=== PATIENT | male | born 1950 | race Caucasian/White ===

== ENCOUNTER 2021-09-10 07:26 | Outpatient (CLI) | payer MEDICARE, SELFPAY ==
--- NOTE | ~2021-09-10 | US_ITS ---
EXAMINATION: US aorta [facility] DATE: 09/10/2021 08:10 INDICATION: Abdominal aortic aneurysm screening, hypercholesterolemia prior smoker TECHNIQUE: Grayscale, color Doppler, and pulsed Doppler images of the aorta and common iliac arteries were obtained. COMPARISON: None. FINDINGS: Maximum vascular dimensions are as follows: Proximal aorta: 2.9 cm Mid aorta: 2.4 cm Distal aorta: 2.2 cm Right common iliac artery: 1.1 cm Left common iliac artery: 1.2 cm There is no evidence of abdominal aortic aneurysm. IMPRESSION: 1. No sonographic evidence of abdominal aortic aneurysm. Reviewed, dictated and finalized at location A.
== END 2021-09-10 07:27 | disposition home or self-care (01) ==
PROVIDERS: PCP Student in an Organized Health Care Education/Training Program; Visit Provider Student in an Organized Health Care Education/Training Program
DX: Z87.891 Personal history of nicotine dependence (principal)
CPT/HCPCS: 76706

== ENCOUNTER → 2022-12-23 15:25 | Outpatient (CLI) | payer MEDICARE, SELFPAY ==
--- NOTE | ~2022-12-23 | MR_ITS ---
EXAMINATION: MR knee LT wo con DATE: 12/23/2022 16:05 INDICATION: Enlarged left knee pain TECHNIQUE: Magnetic resonance imaging (MRI) of the left knee was performed without intravenous contra st. Sequences included coronal PD-weighted FSE, coronal PD-weighted FS FSE, sagittal T2-weighted FSE , sagittal PD-weighted FS FSE and axial PD weighted fat saturated FSE. COMPARISON: None. FINDINGS: Medial compartment: Medial extrusion of the medial meniscal body. There is a complex tear of the medial meniscus with a l ongitudinal horizontal tear plane extending to the inferior articular surface at the meniscal body an d extending to the posterior horn. There is also an oblique parrot beak configuration tear plane exte nding from the inner free edge of the posterior horn posterior medially to the left of the medial men iscus. Is approximately 8 x 7 mm region of deep chondral ulceration and fissuring at the medial aspec t of the central weightbearing medial femoral condyle. There is additional partial thickness cartilag e loss involving greater than 50% the cartilage thickness but with relatively smooth chondral surface along portions of the medial tibial plateau. There is prominent marrow edema surrounding a linear sanchez bcortical fracture line underlying the articular cortex at the medial aspect of the anterior weightbe aring medial femoral condyle with subtle collapse and concavity of the overlying articular cortex. Lateral compartment: Lateral meniscus is normal. Mild partial-thickness cartilage loss with smooth chondral surface along the posterior weightbearing lateral femoral condyle. Remaining articular cartilage is normal. Tiny ma rginal osteophytes. Patellofemoral compartment: Shallow chondral surface regularity along the central aspect of the patellar apical ridge. There is d eep chondral ulceration with underlying irregularity to the articular cortex at the caudal aspect of the medial trochlea. Ligaments and tendons: Anterior and posterior cruciate ligaments are normal. The medial collateral ligament and fibular kat ateral ligament complex are normal. Mild patellar and distal quadriceps tendinopathy. The visualized medial and lateral hamstring tendons as well as the iliotibial band are normal. Fluid: Small to moderate-sized left knee joint effusion with suprapatellar plical band. 6 mm loose osteochon dral body at the recess anterior to the anterior root of the lateral meniscus. Moderate-sized tic or cyst measuring 5.8 cm craniocaudally and 2.7 x 1.1 cm in maximal transaxial dimensions. IMPRESSION: 1. Medial meniscal body extrusion with complex tear involving the body, posterior horn and posterior root. Line 2. Stress fracture with mild collapse of the portion of the medial anterior weightbearing medial femo ral condyle likely related to altered weight distribution resulting from the meniscal tear. 3. Mild tricompartmental osteoarthritis with regions of high-grade chondromalacia in the medial and p atellofemoral compartments. 4. Mild to moderate left knee joint effusion. Reviewed, dictated and finalized at location A. [employer] IMPRESSION: 1. Medial meniscal body extrusion with complex tear involving the body, posteri or horn and posterior root. Line 2. Stress fracture with mild collapse of the portion of the medial anterior isabell ghtbearing medial femoral condyle likely related to altered weight distribution resulting from the meniscal tear. 3. Mild tricompartmental osteoarthritis with regions of high-grade chondromalac ia in the medial and patellofemoral compartments. 4. Mild to moderate left knee joint effusion.
== END ==
PROVIDERS: PCP Student in an Organized Health Care Education/Training Program; Visit Provider Nurse Practitioner Family
DX: M17.12 Unilateral primary osteoarthritis, left knee (principal); M25.462 Effusion, left knee; S83.232A Complex tear of medial meniscus, current injury, left knee, initial encounter; X58.XXXA Exposure to other specified factors, initial encounter
CPT/HCPCS: 73721

== ENCOUNTER 2023-02-09 00:37 | Day surgery (SDC) | payer MEDICARE, SELFPAY ==
[2023-02-03 08:39] VITALS: BMI 32.5
--- NOTE | 2023-02-03 08:49 | PC.NURSE ---
Report to the Outpatient Waiting Room, entrance under the green pavilion located off [facility], at time __12:00PM on date _02/09/23 . Planned Procedure Time: __2:00PM . Time changes happen often and if your time is changed the preop area will call you the afternoon before. - You and your visitor will be asked to self-screen and do not enter if you have any COVID symptoms. - Only one visitor is requested with a max of two and NO children visitors are allowed at this time. - The patient visitor may be requested to leave or wait in car when not with patient due to distancing restrictions. - A mask is optional within the hospital at this time. Patients may have clear liquids (water, carbonated beverages, clear teas, apple juice) until 3 hours prior to surgery with a maximum of 20 ounces. - No food from midnight until time of surgery Take the following medications with a SIP of water the morning of surgery: ___NONE DO NOT STOP ANY OF YOUR OTHER PRESCRIPTION MEDICATIONS PRIOR TO SURGERY ?EXCEPT THE FOLLOWING Medications to discontinue per physician ____HOLD ASPIRIN 7 DAYS PRE-OP PER DR CARLIN(PER PATIENT) Date to take last dose____02/02/23 Please no make-up, nail faroese, hairspray, perfume, deodorant, or body powder the day of surgery. No jewelry (including any body piercings) or valuables the day of surgery, leave them at home. Please take a shower or bath the night before, or the morning of, surgery with an antibacterial soap. Wear comfortable, loose fitting clothing. Children are encouraged to wear pajamas. - Jewelry must be removed prior to entering the operating room. Rings and piercings that are not removed may be cut off. - The hospital will not accept responsibility for valuables. - Please leave all valuables, including medications, at home the day of surgery. If you are going home after surgery, a licensed lease purchase driver must drive you home. - NO public transportation without another adult if you receive anesthesia. - We recommend that an adult stay with you for 24 hours following discharge. - We also recommend that you do not drive, make important decision, drink alcoholic beverages, or take any drugs that were not prescribed by your health care provider for at least 24 hours after your discharge time. Follow any additional instructions given to you from your surgeon. If you or anyone in your household have experienced Covid symptoms in the past week, please notify your surgeon or the nurse liaison at the phone number below for possible testing. Telephone instructions given to ___PATIENT and asked if any additional questions and then verbalized understanding. Patient advised to call surgeon office or pre surgery nurse liaison [phone] if any additional questions.
[2023-02-09] VITALS (7 sets, daily range): BP systolic 117–160; BP diastolic 73–107; PULSE 79–91; RESP 10–20; TEMP 36.2; O2SAT 94–100
--- NOTE | 2023-02-09 07:12 | WPDHPUPDATE1 ---
History and Physical Update Update Date/Time: 02/09/23 07:12 History and Physical has been reviewed, including an updated exam of the patient. There are NO changes in the patient's condition. Risks, benefits, and alternatives have been discussed and questions answered. Patient agrees to proceed with procedure.
[2023-02-09] MEDS: ACETAMINOPHEN 500 MG TABLET 1000 MG PO (08:19)
[2023-02-09] MEDS: CELECOXIB 200 MG CAPSULE PO (08:20)
[2023-02-09] MEDS: LACTATED RINGERS 1,000 ML 30 ML IV CONT (08:35)
--- NOTE | 2023-02-09 09:00 | P.PNAN_ITS ---
Anes - Initial Pre Proc Eval Procedure: Operation Date: 02/09/23 10:30 Proposed Procedures p Left Knee Arthroscopy - Diony Kaye MD Date/Time: 02/09/23 09:00 Surgeon: Diony Kaye MD Pre Op Diagnosis: left knee medial meniscus tear Patient Data Age: 72 Gender: M Height: 1.83 m Weight: 108.2 kg Allergies Allergy/AdvReac Type Severity Reaction Status Date / Time No Known Allergies Allergy Verified 02/09/23 08:18 Home Medications Medication Instructions Recorded Confirmed Type aspirin 325 mg tablet 325 mg PO .PRN 11/16/22 02/09/23 History chlorhexidine gluconate 4 % 1 applic topical ONCE #237 mL 01/28/23 02/09/23 Rx topical liquid (Hibiclens) Patient hx anesthesia problems: none Family hx anesthesia problems: none Results Review: All pre-operative results and documents have been reviewed as part of the pre- operative evaluation. [facility] Past Medical History Medical History Arthritis Left knee pain Medial meniscus tear Rheumatoid arthritis Vision abnormalities Weight gain Surgical History Surgical History History of arthroplasty of right knee 2019-Dr. Kaye History of right cataract surgery Family History Family History Other Diabetes mellitus Family history of arthritis Family history of malignant neoplasm Hypertension Social History Social History Smoking packs per day: 1 Smoking cigarettes per day: 20.0 Years smoked: 20 Smoking pack-years: 20.00 Smoking status: Former smoker Tobacco type: cigarettes Smoking end date: 05/14/90 Alcohol intake: current Substance use: never Living arrangements: with family Additional living arrangements comments: Spiritual care concerns: No Anes - Eval Final PreProcedure Day of Procedure 02/09/23 09:00 Patient weight: obese Heart: regular rate and rhythm Lungs: clear to auscultation Airway: Mallampati scale class II Neurological: alert and oriented Last oral intake: >/= 8 hours ASA classification: III Emergent: no Anesthetic plan: proceed Anesthesia type and monitoring: general LMA and standard monitoring Results Review: All pre-operative results and documents have been reviewed as part of the pre- operative evaluation. Informed Consent: The patient's anesthetic plan and its attendant risks and benefits were discussed with the patient/family/POA. Questions were solicited and answers provided to the satisfaction of the patient/family/POA.
[2023-02-09] MEDS: ceFAZolin 2 GM/D5W 50 ML 2 GM/50 ML BAG IVPB (10:35)
[2023-02-09] MEDS: BUPivacaine HCL 0.5% PF 30 ML VIAL INFILTRATE (10:58)
--- NOTE | 2023-02-09 11:54 | P.OP_ITS ---
Procedure Note - Detailed Date of Procedure 02/09/23 Pre-op Diagnosis left knee medial meniscus tear Post-op Diagnosis Same Procedure Performed LEFT KNEE SCOPE Surgeon Diony Kaye MD Anesthesia General Description of Procedure PATIENT WAS TAKEN TO THE OR. LEFT LEG WAS PREPPED AND DRAPED STERILE. TROCARS WERE PLACED IN THE USUAL FASHION. CAMERA WAS INTRODUCED. THERE WAS CHONDROMALACIA TO THE PATELLA FEMORAL JOINT. THERE WAS A LOT OF SYNOVITIS IN ALL COMPARTMENTS. THE MEDIAL COMPARTMENT SHOWED CHONDROMALACIA TO THE MEDIAL FEMORAL CONDYLE. A SHAVER WAS USED TO PREFORM A CHONDROPLASTY. THERE WAS A COMPLEX MEDIAL MENISCUS TEAR. THE TEAR WAS RESECTED WITH A BITER AND A SHAVER DOWN TO A SMOOTH BASE. ABOUT 30% OF THE MENISCUS WAS REMOVED. THE ACL WAS INTACT. THE LATERAL MENISCUS WAS NOT TORN. THE LATERAL COMPARTMENT HAD MINIMAL CHONDROMALACIA. CHONDROPLASTY WAS PREFORMED. A SYNOVECTOMY WAS PREF ORMED WELL. THE PATELLO FEMORAL JOINT UNDERWENT CHONDROPLASTY. THERE WAS GRADE 2 CHONDROMALACIA IN PART OF THE TROCHLEA AND PART OF THE PATELLA. SYNOVECTOMY WAS PREFORMED IN THE SUPERIOR MEDIAL COMPARTMENT. THE WOUNDS WERE APPROXIMATED WITH 4.0 NYLON. STERILE DRESSING WAS APPLIED. PATIENT WAS EXTUBATED. Estimated Blood Loss -5.0 Complications No immediate complications Condition Stable Disposition PACU
[2023-02-09] MEDS: fentaNYL CITRATE INJ (*CRX) 100 MCG/2 ML VIAL 25 MCG IV PUSH ×4 (12:10→12:16)
== END 2023-02-09 13:20 | disposition home or self-care (01) ==
PROVIDERS: PCP Student in an Organized Health Care Education/Training Program; Visit Provider Orthopaedic Surgery
PROC: (CPT 29870; principal; 2023-02-09 10:30)
DX: M23.332 Other meniscus derangements, other medial meniscus, left knee (principal); M94.262 Chondromalacia, left knee; M65.862 Other synovitis and tenosynovitis, left lower leg; Z79.82 Long term (current) use of aspirin; Z87.891 Personal history of nicotine dependence; E66.9 Obesity, unspecified; Z68.32 Body mass index [BMI] 32.0-32.9, adult
CPT/HCPCS: 29881; A9270; J0690; J1100; J1170; J2405; J2704; J3010; J7120

== ENCOUNTER 2024-07-31 08:00 | Outpatient (CLI) | payer MEDICARE, SELFPAY | END 2024-07-31 08:01 | disposition home or self-care (01) | LOC: ANHAUDIO 08:07 | PROVIDERS: Visit Provider Family Medicine | DX: H90.3 Sensorineural hearing loss, bilateral (principal) | CPT/HCPCS: 92557; 92567 ==

== ENCOUNTER 2024-08-22 06:06 | Day surgery (SDC) | payer MEDICARE, SELFPAY ==
[2024-07-19 09:29] VITALS: BMI 31.5
[2024-08-07 14:01] VITALS: BMI 31.4
--- NOTE | 2024-08-21 15:31 | P.PNAN_ITS ---
Anes - Initial Pre Proc Eval Procedure: Operation Date: 08/22/24 08:00 Proposed Procedures p Diagnostic Colonoscopy - Rene Hoang MD Date/Time: 08/21/24 15:31 Surgeon: Rene Hoang MD Pre Op Diagnosis: Personal HX of Colonic Polyps Patient Data Age: 74 Gender: M Height: 1.83 m Weight: 105 kg Allergies Allergy/AdvReac Type Severity Reaction Status Date / Time No Known Allergies Allergy Verified 08/22/24 06:24 Home Medications Medication Instructions Recorded Confirmed Type aspirin 325 mg tablet 325 mg PO .PRN 11/16/22 08/22/24 History ezetimibe 10 mg tablet (Zetia) 10 mg PO DAILY 07/11/24 08/22/24 History Patient hx anesthesia problems: none Family hx anesthesia problems: none Results Review: All pre-operative results and documents have been reviewed as part of the pre- operative evaluation. [facility] Past Medical History Medical History (Updated 08/22/24 @ 07:03 by Will Newman DO) Arthritis Hyperlipidemia Left knee pain Medial meniscus tear Vision abnormalities Weight gain Surgical History Surgical History History of arthroplasty of right knee 2019-Dr. Kaye History of right cataract surgery Family History Family History Other Diabetes mellitus Family history of arthritis Family history of malignant neoplasm Hypertension Social History Social History Smoking packs per day: 1 Smoking cigarettes per day: 20.0 Years smoked: 20 Smoking pack-years: 20.00 Smoking status: Former smoker Tobacco type: cigarettes Smoking end date: 05/14/90 Alcohol intake: never Substance use: never Substance use type: does not use Living arrangements: with family Additional living arrangements comments: Spiritual care concerns: No Anes - Eval Final PreProcedure Day of Procedure 08/21/24 15:31 Patient weight: obese Heart: regular rate and rhythm Lungs: clear to auscultation Airway: Mallampati scale class II Neurological: alert and oriented Last oral intake: >/= 8 hours ASA classification: II Emergent: no Anesthetic plan: proceed Anesthesia type and monitoring: general GIVS and standard monitoring Results Review: All pre-operative results and documents have been reviewed as part of the pre- operative evaluation. Informed Consent: The patient's anesthetic plan and its attendant risks and benefits were discussed with the patient/family/POA. Questions were solicited and answers provided to the satisfaction of the patient/family/POA.
[2024-08-22 06:25] VITALS: BP 174/85; PULSE 77; RESP 18; TEMP 37.1; O2SAT 98
[2024-08-22] MEDS: LACTATED RINGERS 1,000 ML 150 ML IV CONT (06:27)
--- NOTE | 2024-08-22 07:13 | PM.HPGS ---
History of Present Illness History of Present Illness Consent: Risks, benefits, and alternatives have been discussed and questions answered. Patient agrees to proceed with procedure. Chief complaint: Neoplasia screening Narrative: Jese Lucio is a 74 year old male presents for screening colonoscopy. Patient's current weight appetite and bowel movements appear normal. Patient denies is abdominal pain. he has had no bleeding. Family history is noncontributory. Patient did have prep is the 5 years ago and a benign hyperplastic polyp was removed. This was not felt to have cancer risk. Review of Systems Review of Systems: Review of systems noncontributory. [facility] Past Medical History Medical History (Updated 08/22/24 @ 07:03 by Will Newman DO) Arthritis Hyperlipidemia Left knee pain Medial meniscus tear Vision abnormalities Weight gain Surgical History Surgical History History of arthroplasty of right knee 2019-Dr. Kaye History of right cataract surgery Family History Family History Other Diabetes mellitus Family history of arthritis Family history of malignant neoplasm Hypertension Social History Social History Smoking packs per day: 1 Smoking cigarettes per day: 20.0 Years smoked: 20 Smoking pack-years: 20.00 Smoking status: Former smoker Tobacco type: cigarettes Smoking end date: 05/14/90 Alcohol intake: never Substance use: never Substance use type: does not use Living arrangements: with family Additional living arrangements comments: Spiritual care concerns: No Meds Home Medications and Allergies Home Medications Medication Instructions Recorded Confirmed Type aspirin 325 mg tablet 325 mg PO .PRN 11/16/22 08/22/24 History ezetimibe 10 mg tablet (Zetia) 10 mg PO DAILY 07/11/24 08/22/24 History Allergies Allergy/AdvReac Type Severity Reaction Status Date / Time No Known Allergies Allergy Verified 08/22/24 06:24 Vital Signs Vital Signs - 24 hr 08/22/24 06:25 Temperature 98.7 F Pulse Rate 77 Respiratory Rate 18 Blood Pressure 174/85 H Pulse Oximetry 98 Oxygen Delivery Room Air Exam Narrative: Physical exam reveals patient to be alert. Vital signs stable. HEENT exam is unremarkable. Patient is anti. Lungs are clear to auscultation and percussion is without murmur or extra sounds. Abdomen bowel sounds are present soft nontender with no organomegaly. Digital external rectal exam normal. Assessment and Plan Assessment and plan (1) Colon cancer screening: Code(s): Z12.11 - Encounter for screening for malignant neoplasm of colon Status: Acute Assessment and Plan: Presents today for screening colonoscopy. Further recommendations may be given after endoscopy.
[2024-08-22 08:08] VITALS: BP 154/89; PULSE 80; RESP 16; O2SAT 97
[2024-08-22 08:18] VITALS: BP 144/87; PULSE 69; RESP 16; O2SAT 98
[2024-08-22 08:28] VITALS: BP 141/87; PULSE 72; RESP 16; O2SAT 98
--- NOTE | 2024-08-22 09:21 | WPDANESPN ---
Anes - Prog Note Post-Op Date/Time: 08/22/24 09:21 Cardiovascular status: normal Respiratory status: normal Airway patency: baseline Mental status: baseline Post-Op hydration status: normal Vital Signs: Last Vital Signs Temp 37.1 C 08/22/24 06:25 Pulse 72 08/22/24 08:28 Resp 16 08/22/24 08:28 BP 141/87 H 08/22/24 08:28 Pulse Ox 98 08/22/24 08:28 O2 Del Method Room Air 08/22/24 08:28 Pain Score (VAS): 0 I/O: Intake & Output 08/21/24 08/22/24 08/22/24 23:59 07:59 15:59 Intake Total 500 Balance 500 Post-procedural complaints: none Patient Feedback: Patient satisfied with anesthetic care. Other Findings: Patient vital signs back to baseline. Patient denies nausea and vomiting. Patient's pain under control. Patient OK for discharge.
== END 2024-08-22 08:41 | disposition home or self-care (01) ==
PROVIDERS: Visit Provider Internal Medicine Gastroenterology
PROC: 0DJD8ZZ Inspection of Lower Intestinal Tract, Via Natural or Artificial Opening Endoscopic (ICD-10-PCS; CPT 45378; principal; 2024-08-22 08:00)
DX: Z12.11 Encounter for screening for malignant neoplasm of colon (principal); K64.8 Other hemorrhoids
CPT/HCPCS: 45378

== ENCOUNTER 2024-08-23 13:00 | Outpatient (RCR) | payer MEDICARE, SELFPAY | END 2024-08-23 23:59 | disposition home or self-care (01) | LOC: ANHAUDIO 13:00 | PROVIDERS: Visit Provider Family Medicine | DX: Z46.1 Encounter for fitting and adjustment of hearing aid (principal) | CPT/HCPCS: 99199; V5260 ==

== ENCOUNTER 2024-09-06 13:31 | Emergency (ER) | payer MEDICARE, SELFPAY ==
[2024-09-06 13:41] VITALS: BP 137/99; PULSE 71; RESP 16; TEMP 37.4; O2SAT 99
--- NOTE | 2024-09-06 14:01 | ED_ITS ---
HPI - Abdominal Pain General Chief Complaint: Abdominal Pain Stated Complaint: knot right lower abdomen, not feeling well Time Seen by Provider: 09/06/24 13:50 Source: patient, family () and RN notes reviewed Mode of arrival: ambulatory Limitations: no limitations History of Present Illness HPI narrative: Patient presents today complaining of a one-week history of right anterolateral abdominal pain with a large bulge to the same area. Denies any additional symptoms to include fever, nausea vomiting, diarrhea, urinary symptoms. Currently rates his pain 4/10 and has tried some aspirin which mildly helped his pain. Pain increases while he standing. Patient had a colonoscopy approximately 2 weeks ago and review of report showed a normal scope aside from some internal hemorrhoids. Related Data Home Medications Medication Instructions Recorded Confirmed aspirin 325 mg tablet 325 mg PO .PRN 11/16/22 09/06/24 ezetimibe 10 mg tablet (Zetia) 10 mg PO DAILY 07/11/24 09/06/24 Allergies Allergy/AdvReac Type Severity Reaction Status Date / Time No Known Allergies Allergy Verified 08/22/24 06:24 Review of Systems Review of Systems: CONSTITUTIONAL: Denies body aches, fever, chills, or sweats. EYES: Denies visual changes, redness, or discharge. ENT: Denies rhinorrhea, congestion, sore throat, or otalgia. CARDIOVASCULAR: Denies chest pain, palpitations, or edema. RESPIRATORY: Denies cough or dyspnea. GASTROINTESTINAL: Denies nausea, vomiting, or diarrhea.+ abdominal pain GENITOURINARY: Denies dysuria or hematuria. SKIN: Denies rash, itching, or wounds. MUSCULOSKELETAL: Denies back pain, joint pain, or myalgia. NEUROLOGIC: Denies headache, numbness, tingling, or weakness. PSYCH: Denies depression or anxiety. [facility] Past Medical History Medical History Arthritis Hyperlipidemia Left knee pain Medial meniscus tear Vision abnormalities Weight gain Surgical History Surgical History History of arthroplasty of right knee 2019-Dr. Kaye History of right cataract surgery Family History Family History Other Diabetes mellitus Family history of arthritis Family history of malignant neoplasm Hypertension Social History Social History Smoking packs per day: 1 Smoking cigarettes per day: 20.0 Years smoked: 20 Smoking pack-years: 20.00 Smoking status: Former smoker Tobacco type: cigarettes Smoking end date: 05/14/90 Alcohol intake: never Substance use: never Substance use type: does not use Living arrangements: with family Additional living arrangements comments: Spiritual care concerns: No Comments At time of signature, I have reviewed and agree with nursing past medical, surgical, social and family history unless otherwise noted. Please see nursing chart for further information. There is no relevant family history pertinent to the presenting complaint Exam Narrative: GENERAL: Well-appearing, well-nourished, and in no acute distress. HEAD: Normocephalic, atraumatic. EYES: EOMI. No redness or drainage. Conjunctivae normal. ENT: Mucous membranes pink and moist. NECK: Normal AROM. CHEST: No respiratory distress. Clear to auscultation. HEART: Regular rate and rhythm. No murmur appreciated. Normal peripheral pulses. ABDOMEN: Soft, nondistended, normal active bowel sounds. +tenderness to the right upper anterolateral abdomen with slight bulging noted while standing. EXTREMITIES: Normal range of motion. No edema. SKIN: Warm, dry, no rash. Capillary refill normal. Normal skin turgor. NEURO: No focal deficits. Alert and oriented x3. Gait steady. PSYCH: Normal affect. No signs of depression or anxiety. Course Course Level of Care: Express Care Visit Vital Signs Vital signs: Vital Signs Temperature 99.4 F 09/06/24 13:41 Pulse Rate 71 09/06/24 13:41 Respiratory Rate 16 09/06/24 13:41 Blood Pressure 137/99 H 09/06/24 13:41 Pulse Oximetry 99 09/06/24 13:41 Oxygen Delivery Room Air 09/06/24 13:41 Temperature 99.4 F 09/06/24 13:41 Pulse Rate 71 09/06/24 13:41 Respiratory Rate 16 09/06/24 13:41 Blood Pressure 137/99 H 09/06/24 13:41 Pulse Oximetry 99 09/06/24 13:41 Oxygen Delivery Room Air 09/06/24 13:41 Reviewed Transfer Transfered to: [facility] Transportation: Other (Private vehicle) Transfer rationale: Abdominal pain Accepting physician: Jayda MDM - Abdominal Pain MDM Narrative Medical decision making narrative: Patient will be transferred to the ER for further evaluation of his abdominal pain. Differential Diagnosis Differential diagnosis: Likely abdominal pain and other (hernia, hepatitis) Critical Care Time Critical Care Time Critical Care Time: No Discharge Plan Discharge Clinical Impression: Right sided abdominal pain Patient Disposition: Acute Care Hospital Condition: Stable Prescriptions: No Action aspirin 325 mg tablet 325 mg PO .PRN ezetimibe [Zetia] 10 mg tablet 10 mg PO DAILY Follow-up/Referrals: Colt Martinez RN [Primary Care Provider] - Time of Disposition: 14:02
== END 2024-09-06 14:03 | disposition short-term general hospital (02) ==
PROVIDERS: Emergency Provider Nurse Practitioner
DX: R10.11 Right upper quadrant pain (principal); M19.90 Unspecified osteoarthritis, unspecified site; E78.5 Hyperlipidemia, unspecified; Z87.891 Personal history of nicotine dependence
CPT/HCPCS: 99212; G0463

== ENCOUNTER 2024-09-06 14:16 | Emergency (ER) | payer MEDICARE, SELFPAY ==
--- NOTE | ~2024-09-06 | CT_ITS ---
EXAMINATION: CT abdomen pelvis w con DATE: 09/06/2024 15:40 INDICATION: Right lower quadrant abdominal pain. TECHNIQUE: Computed tomography (CT) of the abdomen and pelvis was performed with 100 mL Omnipaque-350 intravenous contrast. Automated exposure control and iterative reconstruction technique were employe d. The dose-length product was 1261.14 mGy-cm. COMPARISON: None FINDINGS: Mild dependent atelectasis in the bilateral lower lobes. Heart size is normal. Atherosclerotic lew ry artery calcific lesion. No pericardial or pleural effusion. Diffuse hepatic steatosis with focal s paring along the gallbladder fossa. Gallbladder, and pancreas, bilateral adrenal glands and left kidn ey are normal. 2.4 similar eccentric cyst at the posterior right kidney. Small splenic calcific locat ion consistent with old granulomatous disease. 8 mm hyperenhancing splenic lesion, likely a hemangiom a. Bowels are normal. The appendix is not visualized. No pericecal inflammatory change to suggest acu te appendicitis. Bladder is normal. Prostatomegaly measuring 4.7 x 4.0 cm. Small fat-containing umbil ical and left inguinal hernias and moderate-sized fat-containing right inguinal hernia. No free intra peritoneal gas or fluid. No pathologically enlarged abdominal or pelvic lymphadenopathy. Mild lumbar dextrocurvature with severe spondylosis. Mild lower thoracic spondylosis, bladder with bridging osteo phytes at multiple levels consistent with diffuse idiopathic skeletal hyperostosis (DISH). IMPRESSION: 1. No acute intra-abdominal/pelvic process. 2. Small fat-containing umbilical and left inguinal hernias and moderate-sized fat-containing right i nguinal hernia. 3. Prostatomegaly. Reviewed, dictated and finalized at location A. IMPRESSION: 1. No acute intra-abdominal/pelvic process. 2. Small fat-containing umbilical and left inguinal hernias and moderate-sized fat-containing right inguinal hernia. 3. Prostatomegaly.
--- NOTE | 2024-09-06 14:28 | ED.ABDPAIN ---
HPI - Abdominal Pain General Chief Complaint: Abdominal Pain Stated Complaint: R sided abd pain Time Seen by Provider: 09/06/24 14:27 Source: patient Mode of arrival: ambulatory Limitations: no limitations History of Present Illness HPI narrative: This is a 74-year-old male who presents to the ED for chief complaint of right-sided abdominal pain x1 week. Patient reports the pain is relatively constant but does come and go in severity. He thinks that he may have a hernia on the right side and feels some swelling in this area at times. Denies associated nausea, vomiting, diarrhea, constipation. Denies fevers, chills, GI bleeding symptoms. Denies any urinary symptoms. Denies any change of pain with position. Related Data Home Medications Medication Instructions Recorded Confirmed aspirin 325 mg tablet 325 mg PO .PRN 11/16/22 09/06/24 ezetimibe 10 mg tablet (Zetia) 10 mg PO DAILY 07/11/24 09/06/24 Allergies Allergy/AdvReac Type Severity Reaction Status Date / Time No Known Allergies Allergy Verified 09/06/24 14:17 Review of Systems Review of Systems: All systems as dictated in [facility] Past Medical History Medical History Arthritis Hyperlipidemia Left knee pain Medial meniscus tear Vision abnormalities Weight gain Surgical History Surgical History History of arthroplasty of right knee 2019-Dr. Kaye History of right cataract surgery Family History Family History Other Diabetes mellitus Family history of arthritis Family history of malignant neoplasm Hypertension Social History Social History Smoking packs per day: 1 Smoking cigarettes per day: 20.0 Years smoked: 20 Smoking pack-years: 20.00 Smoking status: Former smoker Tobacco type: cigarettes Smoking end date: 05/14/90 Alcohol intake: never Substance use: never Substance use type: does not use Living arrangements: with family Additional living arrangements comments: Spiritual care concerns: No Exam Narrative: GENERAL: Well-appearing, well-nourished, and in no acute distress. HEAD: Normocephalic, atraumatic. EYES: PERRLA and EOMI. ENT: Nares clear, no rhinorrhea or epistaxis. Mucous membranes moist. Oropharynx without tonsillar hypertrophy exudate or other lesions. NECK: Supple. No adenopathy or masses. CHEST: No respiratory distress. Clear to auscultation. No wheezes rales or rhonchi HEART: Regular rate and rhythm. No murmur heard. Normal peripheral pulses. ABDOMEN: Mild right lower quadrant tenderness. Negative flank tenderness bilaterally. Soft, otherwise nontender, nondistended, normal active bowel sounds. MSK: Normal range of motion. No edema. SKIN: Warm, dry, no rash. NEURO: Alert and oriented x4. No focal deficits. PSYCH: Normal mood and affect. Course Reevaluation(s) Reevaluation #1: Re-evaluated the patient after CT scan results. The does appear that there is a small inguinal hernia that is easily reducible on exam. Patient is still relatively asymptomatic at this time and feels ready to go home Date: 09/06/24 Time: 16:03 Vital Signs Vital signs: Vital Signs Pulse Rate 71 09/06/24 14:30 Respiratory Rate 16 09/06/24 14:30 Blood Pressure 185/91 H 09/06/24 14:30 Pulse Oximetry 99 09/06/24 14:30 Pulse Rate 78 09/06/24 16:00 Respiratory Rate 18 09/06/24 16:00 Blood Pressure 156/81 H 09/06/24 16:00 Pulse Oximetry 98 09/06/24 16:00 MDM - Abdominal Pain MDM Narrative Medical decision making narrative: This is a 74 yo male who presents to the ED for chief complaint of right-sided abdominal pain beginning 1 week ago. Vitals are normal. Exam shows mild right-sided abdominal tenderness. Lab work is unremarkable overall. No elevation in white count. CT abdomen and pelvis with IV contrast: IMPRESSION: 1. No acute intra-abdominal/pelvic process. 2. Small fat-containing umbilical and left inguinal hernias and moderate-sized fat-containing right inguinal hernia. 3. Prostatomegaly. Presentation likely consistent with a inguinal hernia pain. On re-evaluation it is easily reducible. He feels ready to go home. Surgery referral will be given. Patient will be discharged in stable condition. Supportive measures discussed and return precautions given. Patient is understanding and agreeable with plan for discharge with PCP follow-up. Lab Data 09/06/24 14:42 09/06/24 14:42 Labs: Lab Results 09/06/24 09/06/24 Range/Units 14:42 15:12 WBC 7.6 (4.5-10.0) K/mm3 RBC 5.44 (4.6-6.20) M/mm3 Hgb 17.3 (14.0-18.0) g/dL Hct 49.4 (42.0-52.0) % MCV 90.8 (80-100) fl MCH 31.8 (26-34) pg MCHC 35.0 (32-36) g/dl RDW 12.0 (11.5-14.5) % Plt Count 246 (150-375) k/mm3 MPV 10.4 (7.4-10.4) fl Immature Gran % (Auto) 0.1 (0-0.5) % Neut % (Auto) 51.5 (45.5-73.1) % Lymph % (Auto) 37.3 (18.3-44.2) % [place] % (Auto) 9.3 H (2.6-8.5) % Eos % (Auto) 1.4 (0-4.4) % Baso % (Auto) 0.4 (0.2-1.2) % Lymph # (Auto) 2.84 (0.9-3.2) K/mm3 [place] # (Auto) 0.7 H (0.1-0.6) K/mm3 Eos # (Auto) 0.1 (0-0.3) K/mm3 Baso # (Auto) 0.0 (0.0-0.1) K/mm3 Abs Immat Gran (auto) 0.01 (0.00-0.031) K/mm3 Absolute Neuts (auto) 3.9 (1.3-6.7) K/mm3 Absolute Nucleated RBC 0.000 (0.0-0.012) K/mm3 Nucleated RBC % 0.0 (0.0-0.2) % Sodium 141 (137-145) mmol/L Potassium 4.3 (3.4-5.0) mmol/L Chloride 100 (98-107) mmol/L Carbon Dioxide 31 H (22-30) mmol/L Anion Gap 10 (4-12) mmol/L BUN 19 (9-20) mg/dL Creatinine 0.90 (0.7-1.3) mg/dL Estim Creat Clear Calc 79 ml/min Estimated GFR > 60 (59 - ) Glucose 93 (65-110) mg/dL Calcium 9.7 (8.4-10.2) mg/dL Total Bilirubin 0.7 (0.2-1.3) mg/dL AST 48 (17-59) U/L ALT 64 H (6-50) U/L Alkaline Phosphatase 47 (38-126) U/L Total Protein 9.0 H (6.3-8.2) g/dL Albumin 5.0 (3.5-5.1) g/dL Lipase 287 (23-300) U/L Urine Color Yellow (Yellow) Urine Appearance Clear (Clear) Urine pH 6.0 (5.0-9.0) Ur Specific [place] 1.015 (1.001-1.035) Urine Protein Negative (Negative) mg/dL Urine Glucose (UA) Negative (Negative) mg/dL Urine Ketones Negative (Negative) mg/dL Ur Blood (Man) Negative (Negative) Urine Nitrate Negative (Negative) Urine Bilirubin Negative (Negative) Urine Urobilinogen 1.0 (<2.0) mg/dL Leukocyte Esterase Rfl Negative (Negative) ERIC/UL Imaging Data Radiologist's impression: ITS Impressions Abdomen/Pelvis CT 09/06/24 15:47 IMPRESSION: 1. No acute intra-abdominal/pelvic process. 2. Small fat-containing umbilical and left inguinal hernias and moderate-sized fat-containing right inguinal hernia. 3. Prostatomegaly. Discharge Plan Discharge Clinical Impression: Hernia, umbilical, Hernia, inguinal, right Patient Disposition: Home, Self-Care Condition: Stable Instructions: Antibiotic Form Additional Instructions: Your exam and imaging today are reassuring overall. Please follow-up with PCP. You can use an [id number] truss belt to help with hernia. If this continues to be an issue, will need to follow-up with general surgery clinic. If you have any new or worsening symptoms please return to the ER for further evaluation. Prescriptions: No Action aspirin 325 mg tablet 325 mg PO .PRN ezetimibe [Zetia] 10 mg tablet 10 mg PO DAILY Follow-up/Referrals: Colt Martinez RN [Primary Care Provider] - Harvey Ramos MD [Physician] - Time of Disposition: 16:04
[2024-09-06 14:30] VITALS: BP 185/91; PULSE 71; RESP 16; O2SAT 99
[2024-09-06 14:52] LABS: Basophils Percent Auto 0.4 % (0.2-1.2); Eosinophils Absolute Auto 0.1 K/mm3 (0-0.3); Eosinophils Percent Auto 1.4 % (0-4.4); Hematocrit 49.4 % (42.0-52.0); Hemoglobin 17.3 g/dL (14.0-18.0); Immature Granulocyte Absolute 0.01 K/mm3 (0.00-0.031); Immature Granulocyte Percent A 0.1 % (0-0.5); Lymphocytes Absolute Auto 2.84 K/mm3 (0.9-3.2); Lymphocytes Percent Auto 37.3 % (18.3-44.2); Mean Corpuscular Hemoglobin 31.8 pg (26-34); Mean Corpuscular Volume 90.8 fl (80-100); Mean Platelet Volume 10.4 fl (7.4-10.4); Monocytes Absolute Auto 0.7 K/mm3 (0.1-0.6); Monocytes Percent Auto 9.3 % (2.6-8.5); Neutrophils Absolute Auto 3.9 K/mm3 (1.3-6.7); Neutrophils Percent Auto 51.5 % (45.5-73.1); Platelet Count Result 246 k/mm3 (150-375); Red Blood Count 5.44 M/mm3 (4.6-6.20); White Blood Count 7.6 K/mm3 (4.5-10.0)
[2024-09-06 14:59] LABS: Alanine Aminotransferase 64 U/L (6-50); Alkaline Phosphatase 47 U/L (38-126); Anion Gap 10 mmol/L (4-12); Aspartate Amino Transferase 48 U/L (17-59); Bilirubin,Total 0.7 mg/dL (0.2-1.3); Blood Urea Nitrogen 19 mg/dL (9-20); Calcium 9.7 mg/dL (8.4-10.2); Carbon Dioxide 31 mmol/L (22-30); Chloride 100 mmol/L (98-107); Estimated CRCL calculation 79 ml/min; Estimated Glomerular Filt Rate > 60; Glucose 93 mg/dL (65-110); Lipase 287 U/L (23-300); Potassium 4.3 mmol/L (3.4-5.0); Sodium 141 mmol/L (137-145)
[2024-09-06 15:18] LABS: Add Urine Microscopic? NO; Appearance Urine Clear (Clear); Bilirubin Urine Negative (Negative); Blood Urine Negative (Negative); Color Urine Yellow (Yellow); Glucose Urine UA Negative (Negative); Ketones Urine Negative (Negative); Leukocyte Esterase Ur Negative LEU/UL (Negative); Nitrate Urine Negative (Negative); Protein Urine Negative (Negative); Specific Grav Ur 1.015 (1.001-1.035)
[2024-09-06 15:30] VITALS: BP 137/86; PULSE 75; RESP 18; O2SAT 98
[2024-09-06 16:00] VITALS: BP 156/81; PULSE 78; RESP 18; O2SAT 98
== END 2024-09-06 16:13 | disposition home or self-care (01) ==
PROVIDERS: Emergency Medicine; Emergency Provider Physician Assistant
DX: K40.20 Bilateral inguinal hernia, without obstruction or gangrene, not specified as recurrent (principal); E78.5 Hyperlipidemia, unspecified; M19.90 Unspecified osteoarthritis, unspecified site; Z96.651 Presence of right artificial knee joint; Z98.41 Cataract extraction status, right eye; Z87.891 Personal history of nicotine dependence; K42.9 Umbilical hernia without obstruction or gangrene; N40.0 Benign prostatic hyperplasia without lower urinary tract symptoms
CPT/HCPCS: 36415; 74177; 80053; 81003; 83690; 85025; 99284; Q9967

== ENCOUNTER 2024-12-12 01:45 | Day surgery (SDC) | payer MEDICARE, SELFPAY ==
[2024-12-06 15:15] VITALS: BMI 31.1
--- NOTE | 2024-12-06 15:26 | PC.NURSE ---
Report to the Outpatient Waiting Room, entrance under the green pavilion located off [facility], at time _08:00am on date _12/12/24 . Planned Procedure Time: _10:00am .? Time changes happen often and if your time is changed the preop area will call you the afternoon before. - You and your visitor will be asked to self-screen and do not enter if you have any COVID symptoms. Please call surgeon if you need to reschedule. - A mask is optional within the hospital at this time. Patients may have clear liquids (water, carbonated beverages, clear teas, apple juice) until 3 hours prior to surgery with a maximum of 20 ounces. - No food from midnight until time of surgery and no smoking. This includes no chewing gum, candy or mints.(07:00am) Take only the following medications with a SIP of water on the morning of surgery: None DO NOT STOP ANY OF YOUR OTHER PRESCRIPTION MEDICATIONS PRIOR TO SURGERY EXCEPT THE FOLLOWING Medications to discontinue per physician None Date to take last dose____None Please no make-up, nail kazakh, hairspray, perfume, deodorant, or body powder the day of surgery.? No jewelry (including any body piercings) or valuables the day of surgery, leave them at home.? Please take a shower or bath the night before, or the morning of, surgery with an antibacterial soap.? Wear comfortable, loose fitting clothing.? - Jewelry must be removed prior to entering the operating room.? Rings and piercings that are not removed may be cut off. - The hospital will not accept responsibility for valuables.? - Please leave all valuables, including medications, at home the day of surgery. If you are going home after surgery, a licensed bus driver school must drive you home.? - NO public transportation without another adult if you receive anesthesia. - We recommend that an adult stay with you for 24 hours following discharge. - We also recommend that you do not drive, make important decision, drink alcoholic beverages, or take any drugs that were not prescribed by your health care provider for at least 24 hours after your discharge time. Follow any additional instructions given to you from your surgeon. Telephone instructions given to __Patient and asked if any additional questions and then verbalized understanding. Patient advised to call surgeon office or pre surgery nurse liaison [phone] if any additional questions.
--- NOTE | 2024-12-11 16:03 | PM.SD2 ---
Same Day Admit/Disch: HPI History of Present Illness Chief complaint: Bilateral Inguinal Hernias Narrative: Jese Lucio is a 74 year old male Who went to the emergency room in late August because of some right lower quadrant pain and associated swelling there. Evaluation there showed that he had a right inguinal hernia on exam. He had a CT scan which showed a small umbilical hernia and bilateral fat containing inguinal hernias, right inguinal hernia being larger than the left. Patient was then seen in my office about a week later. His exam did show a reducible but sizable right inguinal hernia and a smaller but definitely present left inguinal hernia. He also was noted to have a very tiny umbilical hernia which was asymptomatic and an estimated 3 mm defect. After thorough discussion, he is taken to surgery now for robotic laparoscopic repair of the bilateral inguinal hernias with mesh. [facility] Past Medical History Medical History Hyperlipidemia Medial meniscus tear Arthritis Vision abnormalities Weight gain Left knee pain Surgical History Surgical History History of right cataract surgery History of arthroplasty of right knee 2019-Dr. Kaye Family History Family History Other Diabetes mellitus Family history of arthritis Family history of malignant neoplasm Hypertension Social History Social History Smoking packs per day: 1 Smoking cigarettes per day: 20.0 Years smoked: 20 Smoking pack-years: 20.00 Smoking status: Former smoker Tobacco type: cigarettes Smoking end date: 05/14/90 Alcohol intake: never Substance use: never Substance use type: does not use Living arrangements: with family Additional living arrangements comments: Spiritual care concerns: No Same Day Admit/Disch: Med Pre-admit Medications Home Medications ?Medication ?Instructions ?Recorded ?Confirmed ?Type ezetimibe 10 mg tablet (Zetia) 10 mg PO DAILY 07/11/24 12/12/24 History ibuprofen 600 mg tablet 600 mg PO Q6H PRN pain #14 tabs 12/12/24 Rx oxycodone-acetaminophen 5 mg-325 0.5 - 1 tablet PO Q4H PRN pain #10 12/12/24 Rx mg tablet (Percocet) tabs Review of Systems Review of Systems All systems reviewed & are unremarkable except as noted in HPI and below ( HPI) Exam Const: General: comfortable, no acute distress, alert and awake HENMT: Head: normocephalic and atraumatic Mouth: Yes Normal oral and palatal mucosa present Eyes: Conjunctivae: conjunctivae normal Pupils: Equal, round and reactive pupils present EOM: EOMs intact bilaterally Neck: Neck: normal visual inspection, no lymphadenopathy and nontender Resp: Effort & Inspection: normal respiratory effort Auscultation: clear to auscultation bilaterally Cardio: Rate: regular rate Rhythm: regular rhythm Heart sounds: no gallops, no murmurs and no rubs GI: Inspection: non-distended GI Palp: Yes Soft to palpation, No Tenderness to palpation present (GI), No Hepatomegaly present, No Splenomegaly present and Yes Hernia present umbilical < 3 cm ( very small umbilical hernia, nontender, defect estimated 3 mm) : Male General Exam: Yes hernia ( bilateral inguinal hernias, right greater than left, both reducible.) Penis: Yes normal penis Scrotum: scrotum normal Testes: Testes normal Skin: Lesions: no lesions Rashes: no rashes Neuro: General: no focal motor deficits and CN's II-XI intact bilaterally Cranial nerves: Yes Equal, round and reactive pupils present, Yes Bilaterally intact EOM present, Yes facial symmetry and Yes Midline tongue present Speech: normal speech Motor exam (neuro): 5/5 motor strength present throughout and Motor abnormalities not present Extrem: General: no clubbing, cyanosis or edema and edema Psych: Affect: normal affect Thought process: Normal thought process present Insight: Good insight present (Psych) DS: Summary Time Spent with Patient Time attestation: Total time spent providing and/or coordinating discharge services: DS: Admitting Diagnosis Discharge Date 12/12/2024 Admitting Diagnosis bilateral inguinal hernias - both reducible, right is symptomatic and larger. Left is an incidental finding. Plan to proceed with robotic laparoscopic repair of both these hernias with mesh. The procedure, risks, benefits, alternatives have been discussed. The usual length of the surgery and length of recovery has been discussed. All questions were answered. He understands and agrees to go ahead. Umbilical hernia- 3 mm defect, asymptomatic, no need for repair at this time. DS: Discharge Diagnosis Discharge Diagnosis (1) Bilateral inguinal hernia without obstruction or gangrene: Qualifiers: Recurrence: non-recurrent Qualified Code(s): K40.20 - Bilateral inguinal hernia, without obstruction or gangrene, not specified as recurrent Code(s): K40.20 - Bilateral inguinal hernia, without obstruction or gangrene, not specified as recurrent Status: Chronic Assessment and Plan: robotic laparoscopic repair with mesh performed by Dr. Ramos 12/12/2024 Discharge Plan Discharge Patient Disposition: Home, Self-Care Discharge Instructions: 1. May shower the day after surgery over incisions. 2. Call office for: -Wound increasingly painful or bleeding -Vomiting -Fever of greater than 101 degrees 3. Wear scrotal support at all times except when showering or sleeping for 1 week 4. If no bowel movement for three days, take 1 oz. (30 ml) Milk of Magnesia, if no results, take Fleets enema. 5. No heavy lifting > 15-20 pounds for 2 weeks. 6. No driving for 3 days or while taking narcotic pain medications. 7. Up walking 10-30 minutes three times per day. 8. Resume previous home medications. 9. Follow-up 10-14 days in office for wound check or as previously scheduled. 10. Oral pain medications prescription to be sent home with patient. 11. NUTRITION: Start out by drinking fluids and increase your diet as tolerated. If you experience nausea, try dry toast, crackers, and 7-UP. If nausea or vomiting persists, contact your surgeon?s office. Patient Language: Vietnamese Stand Alone Forms: General Discharge Instructions Follow-up/Referrals: Harvey Ramos MD [Physician] - 3 Weeks Discharge Medications: New oxycodone-acetaminophen [Percocet] 5-325 mg tablet 0.5 - 1 tablet PO Q4H PRN (Reason: pain) Qty: 10 0RF ibuprofen 600 mg tablet 600 mg PO Q6H PRN (Reason: pain) Qty: 14 0RF Continued ezetimibe [Zetia] 10 mg tablet 10 mg PO DAILY
[2024-12-12] VITALS (8 sets, daily range): BP systolic 129–166; BP diastolic 68–84; PULSE 72–86; RESP 12–20; TEMP 36.1–36.4; O2SAT 94–100; BMI 32.0
[2024-12-12] MEDS: LACTATED RINGERS 1,000 ML 30 ML IV CONT ×2 (08:00→12:02)
[2024-12-12] MEDS: ACETAMINOPHEN 500 MG TABLET 1000 MG PO (08:26)
[2024-12-12] MEDS: KETOROLAC 15 MG/ML VIAL (*BKC) IV PUSH (08:26)
--- NOTE | 2024-12-12 08:57 | WPDHPUPDATE1 ---
History and Physical Update Update Date/Time: 12/12/24 08:57 History and Physical has been reviewed, including an updated exam of the patient. There are NO changes in the patient's condition. Risks, benefits, and alternatives have been discussed and questions answered. Patient agrees to proceed with procedure.
--- NOTE | 2024-12-12 09:01 | WPDANESEPPF ---
Anes - Initial Pre Proc Eval Procedure: Operation Date: 12/12/24 10:00 Proposed Procedures p Robotic Laparoscopic Bilateral Inguinal Hernia Repair with Mesh - Harvey Ramos MD Date/Time: 12/12/24 09:01 Surgeon: Harvey Ramos MD Pre Op Diagnosis: Bilateral Inguinal Hernias Patient Data Age: 74 Gender: M Height: 1.83 m Weight: 104 kg Allergies Allergy/AdvReac Type Severity Reaction Status Date / Time No Known Allergies Allergy Verified 12/06/24 15:13 Home Medications ?Medication ?Instructions ?Recorded ?Confirmed ?Type ezetimibe 10 mg tablet (Zetia) 10 mg PO DAILY 07/11/24 12/06/24 History Patient hx anesthesia problems: none Family hx anesthesia problems: none Results Review: All pre-operative results and documents have been reviewed as part of the pre-operative evaluation. [facility] Past Medical History Medical History Hyperlipidemia Medial meniscus tear Arthritis Vision abnormalities Weight gain Left knee pain Surgical History Surgical History History of right cataract surgery History of arthroplasty of right knee 2019-Dr. Kaye Family History Family History Other Diabetes mellitus Family history of arthritis Family history of malignant neoplasm Hypertension Social History Social History Smoking packs per day: 1 Smoking cigarettes per day: 20.0 Years smoked: 20 Smoking pack-years: 20.00 Smoking status: Former smoker Tobacco type: cigarettes Smoking end date: 05/14/90 Alcohol intake: never Substance use: never Substance use type: does not use Living arrangements: with family Additional living arrangements comments: Spiritual care concerns: No Anes - Eval Final PreProcedure Day of Procedure 12/12/24 09:01 Patient weight: obese Heart: regular rate and rhythm Lungs: clear to auscultation Airway: Mallampati scale class II Neurological: alert and oriented Last oral intake: >/= 8 hours ASA classification: II Emergent: no Anesthetic plan: proceed Anesthesia type and monitoring: general ETT and standard monitoring Results Review: All pre-operative results and documents have been reviewed as part of the pre-operative evaluation. Informed Consent: The patient's anesthetic plan and its attendant risks and benefits were discussed with the patient/family/POA. Questions were solicited and answers provided to the satisfaction of the patient/family/POA.
[2024-12-12] MEDS: ceFAZolin 2 GM/D5W 50 ML 2 GM/50 ML BAG IVPB (09:35)
[2024-12-12] MEDS: BUPIVACAINE/EPINEPHRINE 0.5% 30 ML VIAL INFILTRATE (10:25)
--- NOTE | 2024-12-12 12:00 | P.PNAN_ITS ---
Anes - Initial Pre Proc Eval Procedure: Operation Date: 12/12/24 10:00 Proposed Procedures p Robotic Laparoscopic Bilateral Inguinal Hernia Repair with Mesh - Harvey Ramos MD Date/Time: 12/12/24 12:00 Surgeon: Harvey Ramos MD Pre Op Diagnosis: Bilateral Inguinal Hernias Patient Data Age: 74 Gender: M Height: 1.83 m Weight: 107.2 kg Last Vital Signs Temp 36.4 C 12/12/24 07:50 Pulse 72 12/12/24 07:50 Resp 16 12/12/24 07:50 BP 166/83 H 12/12/24 07:50 Pulse Ox 98 12/12/24 07:50 O2 Del Method Room Air 12/12/24 07:50 Allergies Allergy/AdvReac Type Severity Reaction Status Date / Time No Known Allergies Allergy Verified 12/12/24 09:24 Home Medications ?Medication ?Instructions ?Recorded ?Confirmed ?Type ezetimibe 10 mg tablet (Zetia) 10 mg PO DAILY 07/11/24 12/12/24 History Patient hx anesthesia problems: none Family hx anesthesia problems: none Results Review: All pre-operative results and documents have been reviewed as part of the pre- operative evaluation. [facility] Past Medical History Medical History Hyperlipidemia Medial meniscus tear Arthritis Vision abnormalities Weight gain Left knee pain Surgical History Surgical History History of right cataract surgery History of arthroplasty of right knee 2019-Dr. Kaye Family History Family History Other Diabetes mellitus Family history of arthritis Family history of malignant neoplasm Hypertension Social History Social History Smoking packs per day: 1 Smoking cigarettes per day: 20.0 Years smoked: 20 Smoking pack-years: 20.00 Smoking status: Former smoker Tobacco type: cigarettes Smoking end date: 05/14/90 Alcohol intake: never Substance use: never Substance use type: does not use Living arrangements: with family Additional living arrangements comments: Spiritual care concerns: No Anes - Eval Final PreProcedure Day of Procedure 12/12/24 12:00 Patient weight: overweight Heart: regular rate and rhythm Lungs: clear to auscultation Airway: Mallampati scale class II Neurological: alert and oriented Last oral intake: >/= 8 hours ASA classification: II Emergent: no Anesthetic plan: proceed Anesthesia type and monitoring: general ETT and standard monitoring Results Review: All pre-operative results and documents have been reviewed as part of the pre- operative evaluation. Informed Consent: The patient's anesthetic plan and its attendant risks and benefits were discussed with the patient/family/POA. Questions were solicited and answers provided to the satisfaction of the patient/family/POA.
[2024-12-12] MEDS: fentaNYL CITRATE INJ (*CRX) 100 MCG/2 ML VIAL 25 MCG IV PUSH ×3 (12:12→12:36)
--- NOTE | 2024-12-12 12:12 | W.PM.PROC2 ---
Procedure Note - Detailed Date of Procedure 12/12/24 Pre-op Diagnosis Bilateral Inguinal Hernias Post-op Diagnosis Same Procedure Performed Robotic laparoscopic repair bilateral inguinal hernias with mesh Surgeon Harvey Ramos MD Intellectual Property Legal Assistant Nikki WALSH, Katie WALSH Anesthesia General and Local Indications patient has noticed a knot or bulge in the right groin and has been having right lower quadrant pain. His exam showed bilateral inguinal hernias has did a CT scan. After discussion, he is taken to surgery now for robotic laparoscopic repair of bilateral inguinal hernias Findings both hernias were direct hernias, the right was quite a bit bigger than the left. There were intestinal adhesions to the peritoneum in the pelvis on both sides, right side was more so than the left Description of Procedure patient was taken to surgery and induced into general anesthesia. Trocars were placed in the usual fashion using initially a 5 mm applied Medical optical trocar in the left upper quadrant under direct visualization. The robotic trocars were then placed and the initial trocar was switched out for an 8 mm robotic trocar as well. The patient was placed in Trendelenburg and the robotic arms were brought into the field. The camera was docked and targeted. The operating arms were docked and position in the area of the 2 hernias. The surgeon then went to the robotic console. We started on the right side. I created a peritoneal flap that was anterior to the inguinal canal structures. The bowel adhesions to the peritoneum were left in place and as the peritoneal flap was developed these fell down with the peritoneum exposing the inguinal canal structures. Dissection was carried out broadly. On the medial aspect we dissected right under the rectus muscle down to Benoit's ligament. Dissecting on either side at Benoit's ligament we crossed over the midline and exposed at least 2 cm of the left rectus muscle as well as the pubis. Our dissection continued a couple of cm posterior to Benoit's ligament. I then continued the lateral dissection of the peritoneum off the abdominal wall and then came back to the area where the hernia defect was located. Transversalis fascia was noted with gentle retraction of the peritoneum. I dissected the transversalis fascia off the peritoneal sac and gently reduced the peritoneum. Slightly laterally, the peritoneum was dissected such that I was able to locate and avoid the inguinal canal structures. Once the peritoneum was free of the hernia defect and the cord structures, I continued the dissection posteriorly until at least 4 cm existed between the lower aspect of the hernia defect and the peritoneum. We then turned our attention to the left inguinal area. Similarly, a peritoneal flap anterior to the structures was developed from lateral to medial. This was also dissected broadly. The left side had a direct hernia as well although it was smaller than the right side. Benoit's ligament and the pubis were dissected and the 2 communicating retropubic space is or noted. The transversalis fascia was dissected off the peritoneum in the direct space. The cord structures were identified and the peritoneum was dissected posterior to the cord structures without injuring any of them. I looked for a cord lipoma on both sides and in either case was there 1 found. Once left-sided dissection was completed, a an extra-large left-sided Bard 3DMax mesh was placed in the field. Sutures were placed in the field. A needle arias replaced the dissecting scissors. The mesh was positioned appropriately passing beyond the pubis about 2 cm and also about 2 cm below the Benoit's ligament. A 3-0 Vicryl suture was used to suture the mesh to Benoit's ligament. Two additional 3-0 Vicryl sutures were placed anteriorly, 1 on either side of the inferior epigastric vessels. The mesh was in good position. I used a 3 0 V lock suture and closed the peritoneal defect in running fashion. The Vicryl and V lock needles were then removed. A right-sided extra-large mid 3D max mesh was then brought into the field. Two new sutures were also placed. The mesh was again positioned in similar fashion covering a couple of cm beyond the midline medially. Was also positioned in a couple of cm posterior to the pubis and Benoit's ligament. Vicryl suture was again used to suture the mesh to Benoit's ligament. Two other Vicryl sutures were used to secure it to the anterior abdominal wall, 1 on either side of the inferior epigastric vessels. The mesh was in good position. Bleeding had been minimal for eat side. I then closed the right-sided peritoneal flap with running 3 0 V lock suture. We then removed the Vicryl and V lock needles. The instruments were removed and the robot undocked. CO2 was evacuated and the trocars were removed. Skin wounds were closed with subcuticular 4-0 Monocryl skin suture. An athletic supporter was placed. Patient was awakened and taken to recovery in good condition. Sponge and needle counts were correct x2. Implants Right and left sided 17 x 12 cm mid 3D max mesh Estimated Blood Loss -5 Urine Output 150 Drains No Packing No Pathology None sent Complications None Condition Stable Disposition PACU [facility] Billing Surgery - Charge Forward: Surgery Billing ( robotic laparoscopic repair bilateral inguinal hernias with mesh)
== END 2024-12-12 14:00 | disposition home or self-care (01) ==
PROVIDERS: PCP Family Medicine; Visit Provider Surgery
PROC: 8E0Y4CZ Robotic Assisted Procedure of Lower Extremity, Percutaneous Endoscopic Approach (ICD-10-PCS; CPT 49650; principal; 2024-12-12 10:00)
DX: K40.20 Bilateral inguinal hernia, without obstruction or gangrene, not specified as recurrent (principal); K66.0 Peritoneal adhesions (postprocedural) (postinfection); Z87.891 Personal history of nicotine dependence; E66.9 Obesity, unspecified; Z68.32 Body mass index [BMI] 32.0-32.9, adult
CPT/HCPCS: 49650; S2900; A9270; C1781; J0690; J1100; J1885; J2371; J2405; J2704; J3010; J7120

== ENCOUNTER 2025-08-05 06:28 | Emergency (ER) | payer MEDICARE, SELFPAY ==
--- NOTE | ~2025-08-05 | CT_ITS ---
EXAMINATION: CT orbit BI w con DATE: 08/05/2025 07:44 INDICATION: Right periorbital swelling TECHNIQUE: Computed tomography (CT) of the orbits was performed with 100 mL Omnipaque-[address] reconstructions were obtained in the coronal, and sagittal planes. The dose-length product was 189.39 mGy-cm. COMPARISON: None FINDINGS: Mild right periorbital and preseptal soft tissue swelling. Changes of bilateral intraocular lens replacement. Orbits are otherwise normal with no post septal inflammatory stranding. Mild mucosal thickening the left maxillary sinus. Mastoid air cells and middle ear cavities are clear. Right vertebral artery is dominant. Small amount of atherosclerotic calcification at the bilateral carotid siphons. Visualized portions of the brain are unremarkable for age. IMPRESSION: 1. Nonspecific right periorbital/preseptal soft tissue swelling with no abscess or post septal inflammatory stranding. Reviewed, dictated and finalized at location A.
--- OUTSIDE RECORDS SUMMARY | 2025-08-05 06:31 | XMS_ITS | Clinical Summary ---
Author Organization [facility] Address [facility] [place] [address] Care Team Providers Care Bank Worker Name Role Phone Jason Newman DO Primary Care Provider + Allergies No known active allergies Medications ezetimibe (ZETIA) 10 MG tabletIndications:H yperlipidemia, unspecified hyperlipidemia type Take 1 tablet (10 mg total) by mouth daily. 90 tablet 3 3 Active zolpidem CR (AMBIEN CR) 6.25 MG tabletIndications:P rimary insomnia Take 1 tablet (6.25 mg total) by mouth nightly as needed for Sleep. 30 tablet 2 4 Active Active Problems Problem Noted Date Diagnosed Date Elevated CPK 05/20/2022 Elevated blood pressure reading 05/20/2022 History of hepatitis C 09/30/2019 Hyperlipidemia, unspecified hyperlipidemia type 09/30/2019 BMI 33.0-33.9,adult 09/30/2019 Colitis 03/07/2019 Osteoarthrosis 03/07/2019 Polyp of colon 03/07/2019 Immunizations Immunization Administration Dates Next Due Arexvy Respiratory Syncytial Virus (RSV, adjuvanted) 0.5 mL, PF 10/19/2023 Fluzone High Dose - >Age 65 (Prefilled Syringe) 08/27/2023,08/30/2022,08/27/2021,2019,09/06/2019,09/04/2018,09/21/2017,1 Influenza (Generic) 08/28/2019,09/08/2016 Influenza Adult (Generic) 08/30/2022,,09/21/2017,2015,09/07/2015,08/28/2014,08/13/2013,1 PFIZER COVID-19 (STEPHENS CAP), MRNA, LNP-S, PF, 30 MCG/0.3 ML DAI-SUCROSE, IM 03/04/2022 PFIZER COVID-19 (ORIGINAL FORMULATION, PURPLE CAP) mRNA, LNP-S, PF, 30 MCG/0.3 ML DOSE 10/15/2021 PFIZER COVID-19 BIVALENT (12 +) mRNA, LNP-S, PF, 30 MCG/0.3 ML DOSE 09/15/2022 Pneumococcal (Pneumovax 23) 08/27/2021 Pneumococcal (Prevnar 13) 09/07/2015 Shingrix 10/19/2023 Tdap (Boostrix) 09/27/2019 Zoster (Zostavax) 21046 Unt/0.65Ml 08/19/2009 Family History Medical History Relation Comments Cancer Father lung Dementia Mother Relation Status Comments Father Mother Social History Tobacco Use Types Packs/Day Years Used Date Smoking Tobacco: Former Cigarettes 2 24 1 8 - 1991 Passive Smoke Exposure: Never Smokeless Tobacco: Never Tobacco Cessation:Counseling Given: Not Answered Comments:na Alcohol Use Standard Drinks/Week Comments Yes 0 (1 standard drink = 0.6 oz pur e alcohol) Rarely PHQ-2 Answer Date Recorded Patient Health Questionnaire-2 Score 0 03/05/2024 Sex and Gender Information Value Date Recorded Sex Assigned at Not on file 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 Gender Identity Not on file Sexual Orientation Not on file Occupation Industry Job Start Date Job End Date Not on file Not on file Not on file Not on file Last Filed Vital Signs Vital Sign Reading Time Taken Comments Blood Pressure 116/64 03/05/2024 7:16 AM CDT Pulse 71 03/05/2024 7:16 AM CDT Temperature 36.8 C (98.3 F) 03/05/2024 7:16 AM CDT Respiratory Rate 16 03/05/2024 7:16 AM CDT Oxygen Saturation 97% 03/05/2024 7:16 AM CDT Inhaled Oxygen Concentration - - Weight 105.9 kg (233 lb 6.4 oz) 03/05/2024 7:16 AM CDT Height 182.9 cm (6') 03/05/2024 7:16 AM CDT Body Mass Index 31.65 03/05/2024 7:16 AM CDT Plan of Treatment Health Maintenance Due Date Last Done Comments Annual Medicare Wellness Visit 2015 Zoster Vaccines (3 of 3) 12/14/2023 10/19/2023, 04/2009 Colorectal Cancer Screening Colonoscopy (10 Years) 01/26/2024 01/25/2019 PHQ-2 (Physician [place]) 11/14/2024 03/05/2024 COVID-19 Vaccine ( season) 2025 08/27/2023, 09/15/2022, 03/04/2022, Additional history exists DTaP, Tdap and Td Vaccines (2 - Td or Tdap) 09/27/2029 09/27/2019 Hepatitis C Completed 09/30/2019, 09/27/2019 Pneumococcal Vaccine: 50+ Years Completed 08/27/2021, 09/07/2015 RSV Immunization or 60+ Years Completed 10/19/2023 Meningococcal B Vaccine Aged Out No l onger eligible based on patient's age to complete this topic Meningococcal Vaccine Aged Out No veronica en eligible based on patient's age to complete this topic RSV Immunizations Under 20 Months Aged Out No longer eligible based on patient's age to complete this topic Procedures Procedure Name Priority Date/Time Associated Diagnosis Comments COLONOSCOPY GENERIC (SCAN ORDER) 01/25/2019 from Last 3 Months or Most Recently Relevant to Health Maintenance Results * COLONOSCOPY GENERIC (01/25/2019) 01/25/2019 Narrative 01/25/2019 Ordered by an unspecified provider. us Documents Scanned SCANNING Final Result from Last 3 Months or Most Recently Relevant to Health Maintenance Insurance [employer] Advance Directives Documents on File Type Date Recorded Patient Precision Filer Hand Expl anation Advance Directives and Living Will 08/26/2020 Care Teams Bank Worker Relationship Specialty Start Date End Date Jason Newman DO [address] [place] [id number] PCP - General FAMILY PRACTICE 09/20/19
--- OUTSIDE RECORDS SUMMARY | 2025-08-05 06:31 | XMS_ITS | Clinical Summary ---
Author Organization [facility] Address [address] [place] [address] Care Team Providers Care Rehabilitation Therapy Aide Name Role Phone Balwinder Guan MD Primary Care Provider [phone] Source Comments [facility],non-owned Affiliates and Associated Physician Practices is amultiple site organization consisting of ambulatory clinics and hospital sitesin [place], [place], [place] and [place]. This disclosure is being madepursuant to the Care Everywhere program and may not contain all information available regarding this patient. Last updated 18.[facility] Allergies No known active allergies Medications * Be aware that medications may not be up to date on this document. Alwaysverify current medications with the patient. Ezetimibe (ZETIA PO) Active aspirin EC (ECOTRIN) 81 MG tablet Take 81 mg by mouth once daily Active Immunizations Immunization Administration Dates Next Due INFLUENZA VACCINE, HIGH-DOSE , QUADR. (FLUZONE HIGH-DOSE QUADRIVALENT; 65Y+), 0.7 ML (HD-IIV4) 09/08/2016 Social History Tobacco Use Types Packs/Day Years Used Date Smoking Tobacco: Never Assessed Sex and Gender Information Value Date Recorded Sex Assigned at Not on file Legal Sex Male 10:08 AM CDT Gender Identity Not on file Sexual Orientation Not on file Plan of Treatment Health Maintenance Due Date Last Done Comments COLOGUARD (AGES 45-75) - COL ON CA SCREENING 1950 COLON MONITORING 1950 COLONOSCOPY - COLON CA SCREENING 1950 CT COLONOGRAPHY - COLON CA SCREENING 1950 Colorectal Cancer Screening 1950 FIT - COLON CA SCREENING 1950 FLEX SIG - COLON CA SCREENING 1950 LIPID TESTING 1950 HEPATITIS C SCREENING 03/31/1968 DTAP/TDAP/TD VACCINES (1 - Tdap) 1969 PNEUMOCOCCAL VACCINE 50+ (1 of 1 - PCV) 2000 ZOSTER VACCINE (1 of 2) 2000 DEPRESSION SCREENING 11/14/2024 Respiratory Syncytial Virus (RSV) Vaccine Pt: or over 60 yrs (1 - 1-dose 75+ series) 2025 COVID-19 VACCINE (1 - 2023-2 5 season) 2025 INFLUENZA VACCINE (#1) 2025 09/08/2016 HEPATITIS B VACCINE Aged Out No longe r eligible based on patient's age to complete this topic HIB VACCINE Aged Out No longer eligi ble based on patient's age to complete this topic HPV VACCINE Aged Out No longer eligi ble based on patient's age to complete this topic MENINGOCOCCAL (Group B) VACC INE SHARED DECISION-MAKING Aged Out No longer eligibl e based on patient's age to complete this topic MENINGOCOCCAL GROUPS A/C/Y/W VACCINE Aged Out No longer eligible b ased on patient's age to complete this [place] [address] [place] [address] Care Teams Rehabilitation Therapy Aide Relationship Specialty [place] [address] [place] [phone] PCP - General 01/30/19
--- OUTSIDE RECORDS SUMMARY | 2025-08-05 06:31 | XMS_ITS | Clinical Summary ---
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 Gender Identity Not on file Sexual Orientation Not on file Plan of Treatment Health Maintenance Due Date Last Done Comments Hepatitis C Virus (HCV) Screening 1950 TdaP Immunization 1950 Cologuard 1995 Immunochemical Fecal Occult Blood 1995 Pneumococcal Immunization (5 0+ years) (1 of 1 - PCV) 2000 Zoster Immunization (1 of 2) 2000 Colonoscopy 01/26/2024 01/25/2019 Colorectal Cancer Screening 01/26/2024 SARS-COV-2 Immunization ( - season) 2024 Respiratory Syncytial Virus (RSV) Immunization (Adult) (1 - 1-dose 75+ series) 2025 Influenza Immunization (#1) 2025 Hepatitis B Immunization Aged Out No longer eligible based on patient's age to complete this topic Human Papillomavirus (HPV) Immunization Aged Out No longer eligible b ased on patient's age to complete this topic Meningococcal Immunization (ACWY) Aged Out No longer eligible based on patient's age to complete this topic Rotavirus Immunization Aged Out No lo nger eligible based on patient's age to complete this topic Procedures Procedure Name Priority Date/Time Associated Diagnosis Comments COLONOSCOPY Routine 01/25/2019 from Last 3 Months or Most Recently Relevant to Health Maintenance Results * COLONOSCOPY (01/25/2019) us Rene Katz DO PROCEDURE/MINOR SURGICAL ORDERA BLES Final Result from Last 3 Months or Most Recently Relevant to Health Maintenance Care Teams Transportation Director Relationship Specialty Start Date End Date Balwinder Guan MD PCP - General Internal Medicine 12/19/18
[2025-08-05 06:45] VITALS: BP 167/88; PULSE 87; RESP 18; TEMP 36.8; O2SAT 97
--- NOTE | 2025-08-05 06:55 | ED.EYEPROB ---
HPI - Eye Problem General Chief complaint: Eye Problems <Sabiha Méndez MD - Last Filed: 08/05/25 07:02> Stated complaint: Right Eye problems <Sabiha Méndez MD - Last Filed: 08/05/25 07:02> Time Seen by Provider: 08/05/25 06:54 <Sabiha Méndez MD - Last Filed: 08/05/25 07:02> History of Present Illness HPI Narrative: On Tuesday patient woke up noticed that his right eyelid was very swollen. He thought it was just a stye, however over last 2 days it has increased in size and became more swollen. No significant pain but does itch. No vision changes <Sabiha Méndez MD - Last Filed: 08/05/25 07:02> Related Data Home medications: Home Medications ?Medication ?Instructions ?Recorded ?Confirmed ?Last Taken ?Type aspirin 81 mg tablet 81 mg PO DAILY 08/01/25 Unknown History <Sabiha Méndez MD - Last Filed: 08/05/25 07:02> Allergies/adverse reactions: Allergies Allergy/AdvReac Type Severity Reaction Status Date / Time No Known Allergies Allergy Verified 08/05/25 06:29 <Sabiha Méndez MD - Last Filed: 08/05/25 07:02> Review of Systems Review of Systems: All systems reviewed & are unremarkable except as noted in HPI and below <Sabiha Méndez MD - Last Filed: 08/05/25 07:02> [facility] Past Medical History Medical History: Medical History Hyperlipidemia Medial meniscus tear Arthritis Vision abnormalities Weight gain Left knee pain <Sabiha Méndez MD - Last Filed: 08/05/25 07:02> Surgical History Surgical History: Surgical History H/O bilateral inguinal hernia repair 12/12/24 Robotic laparoscopic repair bilateral inguinal hernias with mesh Dr. Ramos History of right cataract surgery History of arthroplasty of right knee 2018-Dr. Kaye <Sabiha Méndez MD - Last Filed: 08/05/25 07:02> Family History Family History: Family History Other Diabetes mellitus Family history of arthritis Family history of malignant neoplasm Hypertension <Sabiha Méndez MD - Last Filed: 08/05/25 07:02> Social History Social History: Social History Smoking packs per day: 1 Smoking cigarettes per day: 20.0 Years smoked: 20 Smoking pack-years: 20.00 Smoking status: Former smoker Tobacco type: cigarettes Smoking end date: 05/14/90 Alcohol intake: never Substance use: never Substance use type: does not use Current Housing: Decline to Answer Concerned About Future Housing: Decline to Answer Difficulty Paying Gas/Electric Bills: Decline to Answer Difficulty Paying for Meds: Decline to Answer Currently Unemployed: Decline to Answer Education: Decline to Answer Difficulty w/ Childcare or Family Care: Decline to Answer Living arrangements: with family Additional living arrangements comments: Spiritual care concerns: No <Sabiha Méndez MD - Last Filed: 08/05/25 07:02> Exam Narrative: EXAMINATION OF ORGAN SYSTEMS/BODY AREAS: Constitutional: Vital signs per nursing GENERAL:[No acute distress, non-toxic appearing.] HEAD: Normal with no signs of head trauma. EYES: Painless EOMI, conjunctiva normal; very impressive swelling to right upper eyelid. ENT: Hearing grossly intact LUNGS: Nonlabored breathing. HEART: [Regular rate and rhythm] ABD: [Soft], [nontender to palpation] EXT: Normal range of motion SKIN: [No rashes or lesions.] NEURO: [Alert and oriented x 3. No gross focal sensory or strength deficits.] PSYCH: Normal affect <Sabiha Méndez MD - Last Filed: 08/05/25 07:02> Course Course Emergency Course: Patient informed of imaging results. Discharge home on oral antibiotics. <Ibrahima Potts MD - Last Filed: 08/05/25 08:23> Vital Signs Vital signs: Vital Signs Temperature 98.3 F 08/05/25 06:45 Pulse Rate 87 08/05/25 06:45 Respiratory Rate 18 08/05/25 06:45 Blood Pressure 167/88 H 08/05/25 06:45 Pulse Oximetry 97 08/05/25 06:45 Temperature 98.1 F 08/05/25 06:59 Pulse Rate 81 08/05/25 07:22 Respiratory Rate 18 08/05/25 07:22 Blood Pressure 158/80 H 08/05/25 07:22 Pulse Oximetry 97 08/05/25 07:22 Oxygen Delivery Room Air 08/05/25 06:59 <Sabiha Méndez MD - Last Filed: 08/05/25 07:02> Vital Signs Temperature 98.3 F 08/05/25 06:45 Pulse Rate 87 08/05/25 06:45 Respiratory Rate 18 08/05/25 06:45 Blood Pressure 167/88 H 08/05/25 06:45 Pulse Oximetry 97 08/05/25 06:45 Temperature 98.1 F 08/05/25 06:59 Pulse Rate 81 08/05/25 07:22 Respiratory Rate 18 08/05/25 07:22 Blood Pressure 158/80 H 08/05/25 07:22 Pulse Oximetry 97 08/05/25 07:22 Oxygen Delivery Room Air 08/05/25 06:59 <Ibrahima Potts MD - Last Filed: 08/05/25 08:23> MDM - Eye Problem MDM Narrative Medical decision making narrative: Patient presents with right eyelid swelling, worsening over last 2 days. On exam his right eyelid is quite swollen, I suspect possible insect bite or wasps sting, versus possibly periorbital cellulitis. He has normal extraocular movements, so I have low concern for orbital cellulitis, however I will obtain a CT orbits and give a dose of antibiotics. Sign out to oncoming ER physician pending imaging. <Sabiha Méndez MD - Last Filed: 08/05/25 07:02> Lab Data Result diagrams: 08/05/25 07:12 08/05/25 07:12 <Sabiha Méndez MD - Last Filed: 08/05/25 07:02> Labs: Lab Results 08/05/25 Range/Units 07:12 WBC 6.5 (4.5-10.0) K/mm3 RBC 5.27 (4.6-6.20) M/mm3 Hgb 16.3 (14.0-18.0) g/dL Hct 48.0 (42.0-52.0) % MCV 91.1 (80-100) fl MCH 30.9 (26-34) pg MCHC 34.0 (32-36) g/dl RDW 12.3 (11.5-14.5) % Plt Count 198 (150-375) k/mm3 MPV 9.9 (7.4-10.4) fl Immature Gran % (Auto) 0.3 (0-0.5) % Neut % (Auto) 56.5 (45.5-73.1) % Lymph % (Auto) 30.8 (18.3-44.2) % [place] % (Auto) 9.6 H (2.6-8.5) % Eos % (Auto) 2.3 (0-4.4) % Baso % (Auto) 0.5 (0.2-1.2) % Lymph # (Auto) 2.01 (0.9-3.2) K/mm3 [place] # (Auto) 0.6 (0.1-0.6) K/mm3 Eos # (Auto) 0.2 (0-0.3) K/mm3 Baso # (Auto) 0.0 (0.0-0.1) K/mm3 Abs Immat Gran (auto) 0.02 (0.00-0.031) K/mm3 Absolute Neuts (auto) 3.7 (1.3-6.7) K/mm3 Absolute Nucleated RBC 0.000 (0.0-0.012) K/mm3 Nucleated RBC % 0.0 (0.0-0.2) % Sodium 140 (137-145) mmol/L Potassium 4.2 (3.4-5.0) mmol/L Chloride 106 (98-107) mmol/L Carbon Dioxide 22 (22-30) mmol/L Anion Gap 12 (4-12) mmol/L BUN 17 (9-20) mg/dL Creatinine 0.72 (0.7-1.3) mg/dL Estim Creat Clear Calc 98 ml/min Estimated GFR > 60 (59 - ) Glucose 126 H (65-110) mg/dL Calcium 9.0 (8.4-10.2) mg/dL <Sabiha Méndez MD - Last Filed: 08/05/25 07:02> Lab Results 08/05/25 Range/Units 07:12 WBC 6.5 (4.5-10.0) K/mm3 RBC 5.27 (4.6-6.20) M/mm3 Hgb 16.3 (14.0-18.0) g/dL Hct 48.0 (42.0-52.0) % MCV 91.1 (80-100) fl MCH 30.9 (26-34) pg MCHC 34.0 (32-36) g/dl RDW 12.3 (11.5-14.5) % Plt Count 198 (150-375) k/mm3 MPV 9.9 (7.4-10.4) fl Immature Gran % (Auto) 0.3 (0-0.5) % Neut % (Auto) 56.5 (45.5-73.1) % Lymph % (Auto) 30.8 (18.3-44.2) % [place] % (Auto) 9.6 H (2.6-8.5) % Eos % (Auto) 2.3 (0-4.4) % Baso % (Auto) 0.5 (0.2-1.2) % Lymph # (Auto) 2.01 (0.9-3.2) K/mm3 [place] # (Auto) 0.6 (0.1-0.6) K/mm3 Eos # (Auto) 0.2 (0-0.3) K/mm3 Baso # (Auto) 0.0 (0.0-0.1) K/mm3 Abs Immat Gran (auto) 0.02 (0.00-0.031) K/mm3 Absolute Neuts (auto) 3.7 (1.3-6.7) K/mm3 Absolute Nucleated RBC 0.000 (0.0-0.012) K/mm3 Nucleated RBC % 0.0 (0.0-0.2) % Sodium 140 (137-145) mmol/L Potassium 4.2 (3.4-5.0) mmol/L Chloride 106 (98-107) mmol/L Carbon Dioxide 22 (22-30) mmol/L Anion Gap 12 (4-12) mmol/L BUN 17 (9-20) mg/dL Creatinine 0.72 (0.7-1.3) mg/dL Estim Creat Clear Calc 98 ml/min Estimated GFR > 60 (59 - ) Glucose 126 H (65-110) mg/dL Calcium 9.0 (8.4-10.2) mg/dL <Ibrahima Potts MD - Last Filed: 08/05/25 08:23> Imaging Data Radiologist's impression: ITS Impressions Orbit CT 08/05/25 08:10 IMPRESSION: 1. Nonspecific right periorbital/preseptal soft tissue swelling with no abscess or post septal inflammatory stranding. <Ibrahima Potts MD - Last Filed: 08/05/25 08:23> Discharge Plan Discharge Clinical Impression: Pain and swelling of eyelid of right eye, Preseptal cellulitis <Sabiha Méndez MD - Last Filed: 08/05/25 07:02> Patient Disposition: Home <Sabiha Méndez MD - Last Filed: 08/05/25 07:02> Condition: Stable <Sabiha Méndez MD - Last Filed: 08/05/25 07:02> Instructions: Antibiotic Form <Sabiha Méndez MD - Last Filed: 08/05/25 07:02> Additional Instructions: Please follow-up with the eye technician. Take the antibiotic and antihistamines as prescribed. For swelling worsens, or have pain with movement of your eye, vision changes, or anything else concerning, please return to the ER immediately. <Sabiha Méndez MD - Last Filed: 08/05/25 07:02> Patient Language: Cypriot <Sabiha Méndez MD - Last Filed: 08/05/25 07:02> Prescriptions: New loratadine 10 mg tablet 10 mg PO DAILY Qty: 14 0RF amoxicillin-pot clavulanate 875-125 mg tablet 1 tablet PO Q12H Qty: 10 0RF sulfamethoxazole-trimethoprim [Bactrim DS] 800-160 mg tablet 1 tablet PO Q12H Qty: 10 0RF No Action aspirin 81 mg tablet 81 mg PO DAILY ezetimibe [Zetia] 10 mg tablet 10 mg PO DAILY Qty: 90 1RF <Sabiha Méndez MD - Last Filed: 08/05/25 07:02> Follow-up/Referrals: [facility] [place] [facility] [Outside] - 2 Days Jordan Martinez MD [Primary Care Provider, Family Practice] <Sabiha Méndez MD - Last Filed: 08/05/25 07:02>
[2025-08-05 06:59] VITALS: BP 158/80; PULSE 86; RESP 14; TEMP 36.7; O2SAT 94
[2025-08-05] MEDS: LORATADINE 10 MG TABLET PO (07:07)
[2025-08-05 07:19] LABS: Hematocrit 48.0 % (42.0-52.0); Hemoglobin 16.3 g/dL (14.0-18.0); Immature Granulocyte Percent A 0.3 % (0-0.5); Lymphocytes Absolute Auto 2.01 K/mm3 (0.9-3.2); Mean Corpuscular HGB Conc 34.0 g/dl (32-36); Mean Corpuscular Hemoglobin 30.9 pg (26-34); Mean Corpuscular Volume 91.1 fl (80-100); Nucleated Red Blood Cells Absolute Auto 0.000 K/mm3 (0.0-0.012); Nucleated Red Blood Cells Perc 0.0 % (0.0-0.2); Platelet Count Result 198 k/mm3 (150-375); Red Blood Count 5.27 M/mm3 (4.6-6.20); White Blood Count 6.5 K/mm3 (4.5-10.0)
[2025-08-05] MEDS: AMPICILLIN SODIUM/SULBACTAM 3 GM in SODIUM CHLORIDE 0.9% IV 100 ML 200 ML IVPB (07:21)
[2025-08-05 07:22] VITALS: BP 158/80; PULSE 81; RESP 18; O2SAT 97
[2025-08-05 07:30] LABS: Anion Gap 12 mmol/L (4-12); Blood Urea Nitrogen 17 mg/dL (9-20); Calcium 9.0 mg/dL (8.4-10.2); Carbon Dioxide 22 mmol/L (22-30); Chloride 106 mmol/L (98-107); Estimated CRCL calculation 98 ml/min; Estimated Glomerular Filt Rate > 60; Glucose 126 mg/dL (65-110); Potassium 4.2 mmol/L (3.4-5.0); Sodium 140 mmol/L (137-145)
== END 2025-08-05 08:31 | disposition home or self-care (01) ==
PROVIDERS: Emergency Provider Emergency Medicine; PCP Family Medicine
DX: L03.213 Periorbital cellulitis (principal); E78.5 Hyperlipidemia, unspecified; M19.90 Unspecified osteoarthritis, unspecified site; Z98.41 Cataract extraction status, right eye; Z96.651 Presence of right artificial knee joint; Z87.891 Personal history of nicotine dependence
CPT/HCPCS: 36415; 70481; 80048; 85025; 96365; 99284; A9270; J0295; Q9967